=== PATIENT | female | born 1990 | race Two or more races ===

== ENCOUNTER 2025-09-12 13:08 | Outpatient (REF) | payer OTHER, SELFPAY ==
--- NOTE | 2025-09-12 13:12 | EMG_ITS ---
Chief complaint: Bilateral hand tingling Reason for referral: Evaluate for Carpal Tunnel Syndrome or ulnar neuropathy Referred by: Raquel PEREZ Procedure done: Bilateral upper extremities NCS/EMG Precautions and/or limitations: None The limb temperature was monitored continuously and remained between 32-36 degrees C during the performance of the NCS. Nerve Conduction Studies Anti Sensory Summary Table ?Stim Site NR Onset (ms) Norm Onset (ms) Peak (ms) Norm Peak (ms) O-P Amp (?V) Norm O-P Amp Site1 Site2 Delta-0 (ms) Dist (cm) [place] (m/s) Norm [place] (m/s) Left Median Anti Sensory (2nd Digit) Wrist ? 2.8 3.4 <3.6 30.3 >10 Wrist 2nd Digit 2.8 14.0 50 Right Median Anti Sensory Run #1 (2nd Digit) Wrist ? 3.3 4.0 <3.6 25.1 >10 Wrist 2nd Digit 3.3 14.0 42 Right Median Anti Sensory Run #2 (2nd Digit) Wrist ? 3.2 3.8 <3.6 27.6 >10 Wrist 2nd Digit 3.2 14.0 44 Right Radial Anti Sensory (Thumb) Forearm ? 1.8 2.4 <3.1 37.7 Forearm Thumb 1.8 0.0 Left Ulnar Anti Sensory (5th Digit) Wrist ? 2.3 3.1 <3.7 21.2 >15.0 Wrist 5th Digit 2.3 14.0 61 Right Ulnar Anti Sensory (5th Digit) Wrist ? 2.3 3.1 <3.7 30.1 >15.0 Wrist 5th Digit 2.3 14.0 61 Motor Summary Table ?Stim Site NR Onset (ms) Norm Onset (ms) O-P Amp (mV) Norm O-P Amp iAmp (mV) Amp (1st) (%) Site1 Site2 Delta-0 (ms) Dist (cm) [place] (m/s) Norm [place] (m/s) Left Median Motor (Abd Poll Brev) Wrist ? 3.8 <3.9 10.0 >4.5 12.0 100.0 Elbow Wrist 3.9 21.5 55 >45 Elbow ? 7.7 7.0 8.9 70.0 Right Median Motor (Abd Poll Brev) Wrist ? 3.9 <3.9 12.3 >4.5 14.3 100.0 Elbow Wrist 4.4 23.0 52 >45 Elbow ? 8.3 10.9 12.6 88.6 Left Ulnar Motor (Abd Dig Minimi) Wrist ? 2.7 <3.0 9.9 >5 12.4 100.0 B Elbow Wrist 3.6 20.0 56 >45 B Elbow ? 6.3 10.0 12.7 101.0 A Elbow B Elbow 1.4 10.0 71 >45 A Elbow ? 7.7 9.6 12.4 97.0 Right Ulnar Motor (Abd Dig Minimi) Wrist ? 3.0 <3.0 10.3 >5 13.8 100.0 B Elbow Wrist 3.7 20.0 54 >45 B Elbow ? 6.7 9.9 13.8 96.1 A Elbow B Elbow 1.3 10.0 77 >45 A Elbow ? 8.0 10.3 14.4 100.0 EMG ?Side Muscle Nerve Root Ins Act Fibs Psw Amp Dur Poly Recrt Int Pat Comment Right 1stDorInt Ulnar C8-T1 Nml Nml Nml Nml Nml 0 Nml Complete Right FlexCarRad Median C6-7 Nml Nml Nml Nml Nml 0 Nml Complete Right Biceps Musculocut C5-6 Nml Nml Nml Nml Nml 0 Nml Complete Right Triceps Radial C6-7-8 Nml Nml Nml Nml Nml 0 Nml Complete Right Deltoid Axillary C5-6 Nml Nml Nml Nml Nml 0 Nml Complete Left 1stDorInt Ulnar C8-T1 Nml Nml Nml Nml Nml 0 Nml Complete Left FlexCarRad Median C6-7 Nml Nml Nml Nml Nml 0 Nml Complete Left Biceps Musculocut C5-6 Nml Nml Nml Nml Nml 0 Nml Complete Left Triceps Radial C6-7-8 Nml Nml Nml Nml Nml 0 Nml Complete Left Deltoid Axillary C5-6 Nml Nml Nml Nml Nml 0 Nml Complete FINDINGS: Right median sensory nerve showed prolonged peak latency. All other nerves tested were within normal. Concentric needle EMG was performed in selected muscles of the bilateral upper extremities. Study did not reveal signs of electric abnormalities as shown in the table above. IMPRESSION: 1. This is an abnormal study. 2. There is electrodiagnostic evidence for right mild median neuropathy at the wrist, consistent with carpal tunnel syndrome. 3. There is no electrodiagnostic evidence for ulnar neuropathy, brachial plexopathy, or cervical radiculopathy. 4. No evidence for median neuropathy on left. Thank you for your kind referral. Yoselin Pollock MD, SAIDA Board Certified, [place] [employer] (ABPMR) Board Certified, [place] [employer] Electro[employer] (ABEM) CODIN [phone] x 2 extremities MTDD
== END 2025-09-12 13:09 | disposition home or self-care (01) ==
LOC: HO.NEURO 13:08
PROVIDERS: PCP Internal Medicine; Visit Provider Physician Assistant
DX: G56.03 Carpal tunnel syndrome, bilateral upper limbs (principal); R20.2 Paresthesia of skin
CPT/HCPCS: 95886; 95911

== ENCOUNTER → 2025-09-12 13:12 | Outpatient (BNV) | payer OTHER, SELFPAY | PROVIDERS: PCP Internal Medicine; Visit Provider Physical Medicine & Rehabilitation | DX: G56.01 Carpal tunnel syndrome, right upper limb (principal); R20.2 Paresthesia of skin | CPT/HCPCS: 95886; 95911 ==